=== PATIENT | male | born 1975 | race Two or more races ===

== ENCOUNTER 2017-08-27 13:08 | Emergency (ER) | payer SELFPAY ==
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
[2017-08-27] MEDS ORDERED: Diphtheria,Pertussis(Acell),Tetanus Vaccine 0.5 ML SDV IM ONE (14:42)
== END 2017-08-27 15:45 | disposition home or self-care (01) ==
LOC: JD.ED 13:08
DX: S02.2XXA Fracture of nasal bones, initial encounter for closed fracture (principal); S01.511A Laceration without foreign body of lip, initial encounter; F10.129 Alcohol abuse with intoxication, unspecified; Z23 Encounter for immunization; W19.XXXA Unspecified fall, initial encounter
CPT/HCPCS: 90471; 90715; 99283; 99283-25

== ENCOUNTER 2018-02-09 09:28 | Emergency (ER) | payer OTHER ==
--- NOTE | 2018-02-09 11:29 | EDM.PDOC ---
ED HPI GENERAL MEDICAL PROBLEM - General Chief Complaint: Lower Extremity Injury/Pain Stated Complaint: RT LEG INJURY Time Seen by Provider: 02/09/18 10:14 Source of Information: Reports: Patient, RN Notes Reviewed - History of Present Illness INITIAL COMMENTS - FREE TEXT/NARRATIVE: 42 year old male slipped on ice this morning injuring L leg just below the knee and also L disal leg pain just above the ankle. No other pain or injury from the fall. Has pain above areas with walking. Right Lower Leg Pain Score (Numeric/FACES): 7 - Related Data Allergies Allergy/AdvReac Type Severity Reaction Status Date / Time No Known Allergies Allergy Verified 02/09/18 09:38 Home Meds: Home Meds . [No Known Home Meds] 08/27/17 [History] Past Medical History - Past Health History Medical/Surgical History: Denies Medical/Surgical History Social & Family History - Family History Family Medical History: Noncontributory - Tobacco Use Smoking Status *Q: Current Every Day Smoker Years of Tobacco use: 24 Packs/Tins Daily: 0.2 - Caffeine Use Caffeine Use: Reports: Coffee, Soda - Recreational Drug Use Recreational Drug Use: No Review of Systems - Review of Systems Review Of Systems: See Below Eyes: Reports: No Symptoms Ears: Reports: No Symptoms Mouth/Throat: Reports: No Symptoms Respiratory: Denies: Shortness of Breath, Pleuritic Chest Pain Cardiovascular: Denies: Chest Pain GI/Abdominal: Denies: Nausea, Vomiting Musculoskeletal: Reports: Leg Pain Neurological: Denies: Numbness, Tingling ED EXAM, GENERAL - Physical Exam Exam: See Below General Appearance: Alert, Mild Distress Head: Atraumatic Neck: Supple, Full Range of Motion Respiratory/Chest: No Respiratory Distress Back Exam: Normal Inspection. No: Vertebral Tenderness Extremities: Leg Pain (tender R leg just below knee, lateral aspect, no swelling or deformity, tender L distal leg anteriorly and laterally, ankle and foot nontender. ) Neurological: Alert, Oriented, No Motor/Sensory Deficits Course - Vital Signs Last Recorded V/S: Last Vital Signs Temp 97.9 F 02/09/18 09:38 Pulse 73 02/09/18 09:38 Resp 14 02/09/18 09:38 BP 138/82 02/09/18 09:38 Pulse Ox 98 02/09/18 09:38 - Re-Assessments/Exams Free Text/Narrative Re-Assessment/Exam: 02/10/18 08:42 X rays are neg. for fx. Departure - Departure Time of Disposition: 11:26 Disposition: Home, Self-Care 01 Condition: Fair Clinical Impression: Leg sprain Fall Qualifiers: Encounter type: initial encounter Qualified Code(s): W19.XXXA - Unspecified fall, initial encounter Ankle sprain Qualifiers: Encounter type: initial encounter Involved ligament of ankle: other ligament Laterality: right Qualified Code(s): S93.491A - Sprain of other ligament of right ankle, initial encounter - Discharge Information Instructions: Ankle Sprain, [id number] Referrals: PCP,None [Primary Care Provider] - Forms: ED Department Discharge Additional Instructions: Mike wrap right ankle and right lower leg just below the knee for pressure and comfort, ice packs and elevation if needed for swelling, Profen 3 times daily for pain and inflammation as needed, rest her foot ankle and leg as much as possible, follow-up clinic if not much better and if not getting back to normal within 3-5 days as expected
--- NOTE | 2018-02-09 12:30 | CR ---
Right tibia and fibula: Two views of the right tibia and fibula were obtained. Comparison: No previous study. Minimal calcification is seen posterior to the distal tibia which is felt to be incidental. Incidental small spur noted at the attachment of the Achilles tendon to the calcaneus. No fracture or other bony abnormality is seen. Impression: 1. Incidental findings. Diagnostic code #2
== END 2018-02-09 11:37 | disposition home or self-care (01) ==
LOC: JD.ED 09:28
DX: S93.491A Sprain of other ligament of right ankle, initial encounter (principal); F17.210 Nicotine dependence, cigarettes, uncomplicated; W00.9XXA Unspecified fall due to ice and snow, initial encounter
CPT/HCPCS: 73590-26-RT; 73590-RT; 99283